=== PATIENT | male | born 1965 | race Caucasian/White ===

== ENCOUNTER 2016-12-14 11:31 | Inpatient (IN) | payer OTHER ==
--- NOTE | 2016-12-14 12:02 | EDPHY ---
HPI/HX/ROS/PE/MDM Narrative: CHIEF COMPLAINT: Cough, low SpO2 HPI: The patient is a 51 y/o male complaining of a persistent nonproductive cough and fever for the last couple weeks. He has felt progressively weaker since cough onset. He saw his PCP, Dr. Zaragoza, about a week ago, and was prescribed cough syrup and a z-pack. He did not have a chest x-ray performed at that time. He feels exhausted walking across a room and has been unable to go to work for the last few days. Today he started to feel confused, prompting him to seek care at the ED. He has associated decrease in his appetite with these symptoms. He denies vomiting, abdominal pain, diarrhea, chest pain, lightheadedness, syncope, recent trauma. He did not receive a flu vaccination this season. REVIEW OF SYSTEMS: Aside from elements discussed in the HPI, a comprehensive 10-point review of systems was reviewed and is negative. 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 PCP: Dr. Zaragoza PHYSICAL EXAM: General:Patient is alert, in no acute distress. SpO2 74% in triage. Febrile 39.5C ENT:Eyes are normal to inspection. ENT inspection normal. Neck: Normal inspection. Full range of motion. Respiratory:No respiratory distress. Breath sounds clear but diminished bilaterally. Cardiovascular: Regular rate and rhythm. Strong peripheral pulses. Normal cap refill. Abdomen:The abdomen is nontender to palpation. There are no peritoneal signs. Back: Normal to inspection. No tenderness to palpation. Skin: Normal color. No rash. Warm and dry. Extremities: Normal appearance. Full range of motion. Neuro: Oriented x3. Normal motor function. Normal sensory function. ED Course: IV established. CBC, CHEM, BNP, troponin, lactic acid drawn. Chest x-ray ordered. 1000mg PO Tylenol administered. 1245: Reassessed patient and discussed work up. Chest x-ray shows bilateral pneumonia. 750mg IV Levaquin administered. He is 91% on 4LPM O2. Patient will require admission, which he agrees to. MDM: This patient presents with hypoxia, fever and cough. His workup reveals PNA. I see no signs of septic shock, PE, ACS, TAD or CHF. - Data Points Imaging Results: Imaging Impressions Chest X-Ray 12/14/16 11:52 Impression: 1. Bilateral opacities, left greater than right, presumably reflect pneumonia. 2. Suspect low-grade congestive failure/fluid overload. Imaging: I viewed and interpreted images myself Laboratory Results: Laboratory Results 12/14/16 12:00 12/14/16 12/14/16 12/14/16 12:00 12:00 12:00 WBC Pending RBC Pending Hgb Pending Hct Pending MCV Pending MCH Pending MCHC Pending RDW Pending Plt Count Pending MPV Pending Neut % (Auto) Pending Lymph % (Auto) Pending [place] % (Auto) Pending Eos % (Auto) Pending Baso % (Auto) Pending Nucleat RBC Rel Count Pending Absolute Neuts (auto) Pending Absolute Lymphs (auto) Pending Absolute Monos (auto) Pending Absolute Eos (auto) Pending Absolute Basos (auto) Pending Absolute Nucleated RBC Pending Immature Gran % Pending Immature Gran # Pending VBG Lactic Acid 1.9 mmol/L mmol/L (0.7-2.1) Sodium 131 mEq/L L mEq/L (134-144) Potassium 3.4 mEq/L L mEq/L (3.5-5.2) Chloride 99 mEq/L mEq/L (97-110) Carbon Dioxide 21 mEq/l L mEq/l (22-31) Anion Gap 11 mEq/L mEq/L (8-16) BUN 20 mg/dL mg/dL (7-23) Creatinine 0.9 mg/dL mg/dL (0.7-1.3) Estimated GFR > 60 Glucose 176 mg/dL H mg/dL (70-100) Calcium 7.6 mg/dL L mg/dL (8.5-10.4) Medications Given: Discontinued Medications Acetaminophen (Tylenol) 1,000 mg PO EDNOW ONE Stop: 12/14/16 12:11 Last Admin: 12/14/16 12:23 Dose: 1,000 mg General Time Seen by Provider: 12/14/16 11:49 Initial Vital Signs: Initial Vital Signs Temperature (C) 39.5 C H 12/14/16 11:40 Heart Rate 103 H 12/14/16 11:40 Respiratory Rate 22 H 12/14/16 11:40 Blood Pressure 140/69 H 12/14/16 11:40 O2 Sat (%) 74 L 12/14/16 11:40 O2 Delivery Mode Room Air O2 (L/minute) 4 Allergies/Adverse Reactions: cephalexin [From Keflex] Allergy (Verified 12/14/16 12:55) Rash Home Medications: Medication Instructions Recorded NK [No Known Home Meds] 12/14/16 Departure - Departure Disposition: [facility] Inpatient Acute Clinical Impression: Cough, Hypoxemia Pneumonia Qualifiers: Pneumonia type: due to unspecified organism Laterality: bilateral Lung location : unspecified part of lung Qualified Code(s): J18.9 - Pneumonia, unspecified organism Fever Qualifiers: Fever type: due to other condition Qualified Code(s): R50.81 - Fever presenting with conditions classified elsewhere Condition: Fair Report Scribed for: Adolfo Singh Report Scribed by: Carito Bess Date of Report: 12/14/16 Time of Report: 12:02 Physician Review and Approval Statement: Portions of this note were transcribed by an ED scribe. I personally performed the history, physical exam, and medical decision making; and confirm the accuracy of the information in the transcribed note.
[2016-12-14] MEDS ORDERED: ACETAMINOPHEN 500 MG TAB PO ONE (12:10)
[2016-12-14 12:20] LABS: % IMMATURE GRANULYOCYTES 0.5 % (0.0-1.1); ABSOLUTE IMMATURE GRANULOCYTES 0.02 10^3/uL (0.00-0.10); ADD DIFF? NO; ADD MORPH? NO; ADD SCAN? YES; FRAGMENT RBC FLAG 0 (0-99); HEMATOCRIT 46.2 % (40.0-51.0); HEMOGLOBIN 16.5 g/dL (13.7-17.5); LEFT SHIFT FLG 0 (0-99); LIPEMIA HEMOLYSIS FLAG 90 (0-99); MEAN CELL HEMOGLOBIN 30.1 pg (27.9-34.1); MEAN CELL HEMOGLOBIN CONCENTR. 35.7 g/dL (32.4-36.7); MEAN CELL VOLUME 84.3 fL (81.5-99.8); MEAN PLATELET VOLUME 10.1 fL (8.7-11.7); PLATELET CLUMPS FLAG 0 (0-99); PLATELET COUNT 157 10^3/uL (150-400); RED BLOOD CELL COUNT 5.48 10^6/uL (4.40-6.38); RED CELL DISTRIBUTION WIDTH 12.9 % (11.5-15.2)
[2016-12-14 12:21] LABS: ATYPICAL LYMPHOCYTE FLAG 260 (0-99)
[2016-12-14 12:35] LABS: ANION GAP 11 mEq/L (8-16); CALCIUM 7.6 mg/dL (8.5-10.4); CARBON DIOXIDE 21 mEq/l (22-31); CHLORIDE 99 mEq/L (97-110); CREATININE 0.9 mg/dL (0.7-1.3); GLOMERULAR FILTRATION RATE > 60; GLUCOSE 176 mg/dL (70-100); POTASSIUM 3.4 mEq/L (3.5-5.2); SODIUM 131 mEq/L (134-144)
[2016-12-14 12:56] LABS: SCAN NEGATIVE
[2016-12-14 13:29] LABS: TROPONIN I 0.03 ng/mL (0-0.034)
[2016-12-14] MEDS ORDERED: ACETAMINOPHEN 325 MG TAB PO PRN (14:44)
[2016-12-14] MEDS ORDERED: ONDANSETRON DISINTEGRATING 4 MG TAB PO PRN (14:44)
[2016-12-14] MEDS ORDERED: oxyCODONE IR 5 MG TAB PO PRN (14:44)
[2016-12-14] MEDS ORDERED: ONDANSETRON 4 MG/2 ML VIAL IVP PRN (14:44)
[2016-12-14] MEDS ORDERED: IBUPROFEN 200 MG TAB PO PRN (14:44)
--- NOTE | 2016-12-14 16:38 | PDGENHP ---
History and Physical - Chief Complaint Acute fatigue - History of Present Illness Primary care provider Dr. Zaragoza HPI: 51-year-old male presents with acute fatigue characterized as general weakness with associated nonproductive cough, confusion, anorexia with onset of symptoms approximately 1 week ago and acute worsening 3 days ago. Duration has been constant and weakness has been exacerbated by ambulation, resulting in the patient barely being able to complete any activities of daily living. He reports significant shortness of breath with things such as tying his shoes. He saw his primary care provider and received Z-Leonardo as well as cough syrup but neither of these interventions alleviated his symptoms. The patient reports that prior to his onset of symptoms he had otherwise been feeling well but he does report that there is a significant environmental exposure component where he works given recent renovations. Many of his coworkers have been ill but this is the 1st time the patient has felt ill himself. History Information - Allergies/Home Medication List Allergies/Adverse Reactions: cephalexin [From Keflex] Allergy (Verified 12/14/16 12:55) Rash Home Medications: NK [No Known Home Meds] 12/14/16 [Last Taken Unknown] I have personally reviewed and updated: family history, medical history, social history, surgical history - Past Medical History Additional medical history: Occasional sinusitis - Surgical History Additional surgical history: Tonsillectomy as a child - Family History Additional family history: No pulmonary conditions, no cardiac condition - Social History Smoking Status: Never smoked Alcohol Use: Occasionally (Never experienced alcohol withdrawal) Drug Use: Marijuana (Occasional) Additional social history: 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 Review of Systems ROS: 10pt was reviewed & negative except for what was stated in HPI & below Constitutional: Reports: weakness Respiratory: Reports: cough, shortness of breath Physical Exam Temp Pulse Resp BP Pulse Ox 37.1 C 77 18 109/75 92 12/14/16 13:47 12/14/16 13:47 12/14/16 13:47 12/14/16 13:47 12/14/16 13:47 O2 (L/minute) 3.5 Constitutional: no apparent distress, appears nourished, not in pain Eyes: PERRL, anicteric sclera, EOMI Ears, Nose, Mouth, Throat: moist mucous membranes, hearing normal, ears appear normal, no oral mucosal ulcers Cardiovascular: regular rate and rhythym, no murmur, rub, or gallop, No edema Respiratory: reduced air movement (On inspiration), rhonchi (Bilaterally to the mid posterior segment), other (Patient is visibly tachypneic), No expiratory wheeze, No bronchial breath sounds Gastrointestinal: normoactive bowel sounds, soft, non-tender abdomen, no palpable masses Skin: warm, normal color, no rashes or abrasions, no fluctuance, no induration, No mottled Neurologic: AAOx3, sensation intact bilaterally, No weakness (Motor strength 5/ 5 bilaterally) Psychiatric: interacting appropriately, not anxious, not encephalopathic, thought process linear Lymph, Heme, Immunologic: other (Palpable nontender 1 cm submandibular and anterior cervical lymph nodes without any posterior cervical lymphadenopathy) Lab Data & Imaging Review 12/14/16 12:00 12/14/16 12:00 WBC 4.17 10^3/uL (3.80-9.50) 12/14/16 12:00 RBC 5.48 10^6/uL (4.40-6.38) 12/14/16 12:00 Hgb 16.5 g/dL (13.7-17.5) 12/14/16 12:00 Hct 46.2 % (40.0-51.0) 12/14/16 12:00 MCV 84.3 fL (81.5-99.8) 12/14/16 12:00 MCH 30.1 pg (27.9-34.1) 12/14/16 12:00 MCHC 35.7 g/dL (32.4-36.7) 12/14/16 12:00 RDW 12.9 % (11.5-15.2) 12/14/16 12:00 Plt Count 157 10^3/uL (150-400) 12/14/16 12:00 MPV 10.1 fL (8.7-11.7) 12/14/16 12:00 Neut % (Auto) 82.2 % (39.3-74.2) H 12/14/16 12:00 Lymph % (Auto) 13.7 % (15.0-45.0) L 12/14/16 12:00 [place] % (Auto) 3.6 % (4.5-13.0) L 12/14/16 12:00 Eos % (Auto) 0.0 % (0.6-7.6) L 12/14/16 12:00 Baso % (Auto) 0.0 % (0.3-1.7) L 12/14/16 12:00 Nucleat RBC Rel Count 0.0 % (0.0-0.2) 12/14/16 12:00 Absolute Neuts (auto) 3.43 10^3/uL (1.70-6.50) 12/14/16 12:00 Absolute Lymphs (auto) 0.57 10^3/uL (1.00-3.00) L 12/14/16 12:00 Absolute Monos (auto) 0.15 10^3/uL (0.30-0.80) L 12/14/16 12:00 Absolute Eos (auto) 0.00 10^3/uL (0.03-0.40) L 12/14/16 12:00 Absolute Basos (auto) 0.00 10^3/uL (0.02-0.10) L 12/14/16 12:00 Absolute Nucleated RBC 0.00 10^3/uL (0-0.01) 12/14/16 12:00 Immature Gran % 0.5 % (0.0-1.1) 12/14/16 12:00 Immature Gran # 0.02 10^3/uL (0.00-0.10) 12/14/16 12:00 VBG Lactic Acid 1.9 mmol/L (0.7-2.1) 12/14/16 12:00 Sodium 131 mEq/L (134-144) L 12/14/16 12:00 Potassium 3.4 mEq/L (3.5-5.2) L 12/14/16 12:00 Chloride 99 mEq/L (97-110) 12/14/16 12:00 Carbon Dioxide 21 mEq/l (22-31) L 12/14/16 12:00 Anion Gap 11 mEq/L (8-16) 12/14/16 12:00 BUN 20 mg/dL (7-23) 12/14/16 12:00 Creatinine 0.9 mg/dL (0.7-1.3) 12/14/16 12:00 Estimated GFR > 60 12/14/16 12:00 Glucose 176 mg/dL (70-100) H 12/14/16 12:00 Calcium 7.6 mg/dL (8.5-10.4) L 12/14/16 12:00 Troponin I 0.030 ng/mL (0-0.034) 12/14/16 10:00 NT-Pro-B Natriuret Pep 83 pg/mL (0-125) 12/14/16 10:00 Visualized and Interpreted Chest x-ray results: Yes Chest X-Ray results: other (Bilateral dense pulmonary infiltrates) Assessment & Plan Assessment: 51-year-old male presenting with sepsis in the setting of community-acquired pneumonia complicated by acute hypoxic respiratory failure Plan: 1. Sepsis. Acute, new problem this provider, further workup indicated. Evidenced by fever, tachycardia, tachypnea, clear source of infection, resulting in autonomic dysregulation in the setting of infection, fulfilling all sepsis-2/icds-2 criteria for sepsis. -continue to monitor CBC closely -continue monitor fever curve -continue IV fluids -continue empiric IV antibiotics -send blood cultures, sputum cultures -if he is systemically worsening, would recommend getting CT with IV contrast to rule out parapneumonic effusion requiring drainage 2. Community-acquired pneumonia. Acute, new problem this provider, further workup indicated. Evidenced by diffuse bilateral pulmonary infiltrates with pneumonia severity index score of 63, conferring class 2 risk of morbidity and/ or mortality but with significant infiltrates and hypoxia placing this patient at what I would consider a much higher risk of clinical worsening -given that he has had no response azithromycin as an outpatient, would recommend single agent for quinolone to cover possible streptococcal and atypical organisms -send urine Legionella, send urine strep, send blood cultures, send sputum cultures, send HIV, verbal consent obtained from patient 3. Hypoxic respiratory failure. Acute, evidenced by SpO2 of 74% on room air with visible tachypnea and poor air movement as well as respiratory distress and symptomatic shortness of breath leading to this presentation, secondary to pneumonia -continue supplemental oxygen and escalated to non-rebreather if patient's tachypnea does not improve -placed on central pulse ox monitoring -does not require intubation at this time 4. Hyponatremia. Acute, most likely secondary to hypovolemia in the setting of above, give IV normal saline and monitor Diet. Regular Prophylaxis. Moderate risk patient given mobility, Lovenox 40 Code. Full Disposition. Anticipated discharge is uncertain this time anticipated length stay is greater than 48 hours warranting inpatient admission status for acute sepsis with high risk comorbid community-acquired pneumonia and acute hypoxic respiratory failure.
[2016-12-14] MEDS: guaiFENesin 600 MG TAB.ER PO SCH ×2 (17:27→19:41)
[2016-12-14] MEDS: guaiFENesin/CODEINE PHOS 10 ML UDCUP PO PRN (19:41)
[2016-12-14] MEDS: NS W/ 20 KCl/L 1,000 ML IV SCH (23:09)
[2016-12-15 04:50] LABS: ALANINE AMINOTRANSFERASE 61 IU/L (21-72); ALBUMIN 2.5 g/dL (3.5-5.0); ALKALINE PHOSPHATASE 53 IU/L (38-126); ANION GAP 5 mEq/L (8-16); ASPARTATE AMINOTRANSFERASE 78 IU/L (17-59); BILIRUBIN,TOTAL 0.6 mg/dL (0.1-1.4); CALCIUM 7.1 mg/dL (8.5-10.4); CARBON DIOXIDE 24 mEq/l (22-31); CHLORIDE 105 mEq/L (97-110); CREATININE 0.8 mg/dL (0.7-1.3); GLOMERULAR FILTRATION RATE > 60; GLUCOSE 97 mg/dL (70-100); POTASSIUM 3.8 mEq/L (3.5-5.2); SODIUM 134 mEq/L (134-144); TOTAL PROTEIN 4.7 g/dL (6.3-8.2)
[2016-12-15] MEDS: NS W/ 20 KCl/L 1,000 ML IV SCH ×3 (04:58→19:36)
[2016-12-15 04:59] LABS: % IMMATURE GRANULYOCYTES 0.5 % (0.0-1.1); ABSOLUTE IMMATURE GRANULOCYTES 0.02 10^3/uL (0.00-0.10); ADD DIFF? NO; ADD MORPH? NO; ADD SCAN? YES; FRAGMENT RBC FLAG 0 (0-99); HEMATOCRIT 41.7 % (40.0-51.0); HEMOGLOBIN 14.6 g/dL (13.7-17.5); LEFT SHIFT FLG 0 (0-99); LIPEMIA HEMOLYSIS FLAG 90 (0-99); MEAN CELL VOLUME 85.6 fL (81.5-99.8); MEAN PLATELET VOLUME 10.2 fL (8.7-11.7); PLATELET CLUMPS FLAG 0 (0-99); PLATELET COUNT 162 10^3/uL (150-400); RED BLOOD CELL COUNT 4.87 10^6/uL (4.40-6.38); RED CELL DISTRIBUTION WIDTH 13.2 % (11.5-15.2)
[2016-12-15 05:00] LABS: ATYPICAL LYMPHOCYTE FLAG 160 (0-99)
[2016-12-15 06:05] LABS: SCAN NEGATIVE
[2016-12-15] MEDS: guaiFENesin/CODEINE PHOS 10 ML UDCUP PO PRN ×2 (08:43→21:08)
[2016-12-15] MEDS: guaiFENesin 600 MG TAB.ER PO SCH ×2 (08:46→19:35)
[2016-12-15] MEDS: ENOXAPARIN 40 MG/0.4 ML SYR SC SCH (08:46)
--- NOTE | 2016-12-15 11:40 | HOSPPROG ---
Hospitalist Progress Note Assessment/Plan: Assessment: 51-year-old male presenting with sepsis in the setting of community-acquired pneumonia complicated by acute hypoxic respiratory failure Plan: 1. Sepsis. POA, evidenced by fever, tachycardia, tachypnea, clear source of infection, resulting in autonomic dysregulation in the setting of infection, fulfilling all sepsis-2/icds-2 criteria for sepsis, left shift on CBC -continue to monitor CBC closely -continue monitor fever curve -continue IV fluids -continue empiric IV antibiotics -if he is systemically worsening, would recommend getting CT with IV contrast to rule out parapneumonic effusion requiring drainage 2. Community-acquired pneumonia. POA, given that he has had no response azithromycin as an outpatient, would recommend single agent fluoroquinolone to cover possible streptococcal and atypical organisms -neg HIV -D#2/ levofloxacin -given ongoing tachypnea, start steroids today in an attempt to reduce duration of symptoms -start duonebs to help expectorate 3. Hypoxic respiratory failure. Acute, evidenced by SpO2 of 74% on room air with visible tachypnea and poor air movement as well as respiratory distress and symptomatic shortness of breath leading to this presentation, secondary to pneumonia, dense infiltrates on CXR (personally interpreted) -continues to require 3.5L NC and is visibly tachypneic, gets very SOB and hypoxic w/ any exertion -BNP nl on admission, very unlikely to be CHF, hold on echo 4. Hyponatremia. Acute, most likely secondary to hypovolemia in the setting of above, stop NS Diet. Regular Prophylaxis. Moderate risk patient given mobility, Lovenox 40 Code. Full Disposition. Anticipated discharge is uncertain, ongoing resp failure and unsafe to discharge home as his situation is high risk for clinical worsening, highly complex medical decision making 2/2 issues above. Subjective: Patient reports significant shortness of breath with minimal activity, SpO2 was 64% when he got up to use the restroom Objective: Vital Signs Temp Pulse Resp BP Pulse Ox 37.6 C 81 20 122/85 H 91 L 12/15/16 07:27 12/15/16 07:27 12/15/16 07:27 12/15/16 07:27 12/15/16 07:27 Microbiology 12/14/16 22:00 - Final Sputum, Expectorated Laboratory Results 12/15/16 04:13 12/15/16 04:13 12/14/16 12/15/16 12/16/16 05:59 05:59 05:59 Intake Total 2610 Output Total 400 Balance 2210 - Physical Exam Constitutional: appears nourished, not in pain, No no apparent distress (Mild respiratory distress), No chronically ill appearing, No uncomfortable Cardiovascular: regular rate and rhythym, no murmur, rub, or gallop, No edema Respiratory: rhonchi (Bilaterally from inferior to mid posterior segment), other (Visible tachypnea), No expiratory wheeze, No bronchial breath sounds Gastrointestinal: normoactive bowel sounds, soft, non-tender abdomen, no palpable masses Neurologic: AAOx3, sensation intact bilaterally Psychiatric: not encephalopathic, thought process linear, anxious, No agitated ICD10 Worksheet Patient Problems: Problems Problem Status Onset Pneumonia Acute Cough Acute Fever Acute Hypoxemia Acute
[2016-12-15] MEDS: IPRATROPIUM/ALBUTEROL 3 ML DEYVIAL IH SCH ×3 (12:04→21:23)
[2016-12-15] MEDS: predniSONE 20 MG TAB PO SCH (12:34)
[2016-12-16] MEDS: IPRATROPIUM/ALBUTEROL 3 ML DEYVIAL IH SCH ×5 (01:08→22:58)
[2016-12-16 05:34] LABS: % IMMATURE GRANULYOCYTES 0.6 % (0.0-1.1); ABSOLUTE IMMATURE GRANULOCYTES 0.03 10^3/uL (0.00-0.10); ADD DIFF? NO; ADD MORPH? NO; ADD SCAN? YES; FRAGMENT RBC FLAG 0 (0-99); HEMATOCRIT 42.6 % (40.0-51.0); HEMOGLOBIN 14.4 g/dL (13.7-17.5); LEFT SHIFT FLG 0 (0-99); LIPEMIA HEMOLYSIS FLAG 90 (0-99); MEAN CELL HEMOGLOBIN 29.8 pg (27.9-34.1); MEAN CELL HEMOGLOBIN CONCENTR. 33.8 g/dL (32.4-36.7); MEAN PLATELET VOLUME 10.1 fL (8.7-11.7); PLATELET CLUMPS FLAG 0 (0-99); PLATELET COUNT 193 10^3/uL (150-400); RED BLOOD CELL COUNT 4.84 10^6/uL (4.40-6.38); RED CELL DISTRIBUTION WIDTH 13.4 % (11.5-15.2)
[2016-12-16 05:46] LABS: ATYPICAL LYMPHOCYTE FLAG 130 (0-99)
[2016-12-16 06:19] LABS: SCAN NEGATIVE
[2016-12-16] MEDS: predniSONE 20 MG TAB PO SCH (08:35)
[2016-12-16] MEDS: guaiFENesin 600 MG TAB.ER PO SCH ×2 (08:35→21:12)
[2016-12-16] MEDS: ENOXAPARIN 40 MG/0.4 ML SYR SC SCH (08:37)
[2016-12-16] MEDS ORDERED: IOPAMIDOL (ISOVUE-300) 100 ML BTL ONE (10:45)
--- NOTE | 2016-12-16 14:43 | GCON ---
[f rep st] CONSULTATION CHEST CONSULTATION REASON FOR CONSULTATION: Diffuse pneumonia. HISTORY OF PRESENT ILLNESS: The patient is a very pleasant 51-year-old white male without past medi onelia history. He presents with increasing cough and breathlessness. In discussion, the patient stat es it began 9 days prior, which began as a cough that was distinctly nonproductive. There is no hem optysis. He began developing a bit of a low-grade fever. He sought medical attention and was begun on azithromycin per his primary care doctor. This was a short 4-day course. He has continued liat thlessness and sought medical attention. He was simply admitted to the hospital. Currently states he feels markedly improved. He showered today and had no problem with breathlessness nor dizziness. His cough is improved as well. There is no chest pain, pleuritic-type chest pain, or angina equiv alent. No fever or night sweats currently. There has been no weight loss. Prior to this, he was i n his normal state of health. PAST MEDICAL HISTORY: None. PAST SURGICAL HISTORY: Tonsillectomy. ALLERGIES: Keflex. SOCIAL HISTORY: No history of tobacco use. Infrequent alcohol use. Infrequent marijuana use. 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 PHYSICAL EXAM: VITAL SIGNS: Blood pressure is 140/94, pulse 98, respirations are 18, temperature 3 6.8, oxygen saturation is 94% on 5 L. GENERAL: He is a well-developed, well-nourished 51-year-old white male who is resting comfortably on nasal cannula oxygen. HEENT: Eyes are STEPHEN, EOMI. Throat shows no erythema or tonsillar hypertrophy. NECK: Supple. No cervical adenopathy. HEART: Regul ar rate and rhythm without murmurs, rubs, or gallops. LUNGS: Diffuse crackles, increased in the ba ses. ABDOMEN: Soft, nontender. Bowel sounds are present in all 4 quadrants. There is no clubbing , cyanosis, or edema. LABORATORIES: White count 4.9, hemoglobin 14, hematocrit 42, platelet count is 193. Sodium 134, po tassium 3.8, chloride 105, CO2 24, BUN 14, creatinine 0.8, glucose is 97. HIV is negative. Influen za A and B are negative. Urine legionella antigen and urine Strep pneumoniae antigen are currently pending. IMPRESSION: 1. Diffuse pneumonitis. Etiology of which is unclear. Though diffuse pneumonia would appear to be most likely, unclear whether this is bacterial versus viral. While interstitial lung disease is a possibility, given the acuity of this, this would be unlikely. I feel that the current renovations going on in his hotel are not pertinent to hypoxemic respiratory failure secondary to pneumonia. He continues on supplemental oxygen, though this has improved. 2. Hyponatremia. 3. Sepsis, resolved. RECOMMENDATIONS: 1. Agree with current antibiotic coverage. Would keep him on Levaquin for 14 days. 2. Agree with current course of steroids. Again, would taper this over 14 days. 3. Should receive a followup chest x-ray in approximately 1 month. 4. Wean FiO2 as tolerated. 5. Discussed diagnostic options with the patient. 6. have agreed on continued antibiotics and steroids at this time, though bronchoscopy in his futur e if this does not improve would be a possibility. Thank you very much for allowing me to participate in the care of this interesting patient. Will veena steel along with you. /[id number]/MODL
--- NOTE | 2016-12-16 14:47 | HOSPPROG ---
Hospitalist Progress Note Assessment/Plan: Assessment: 51-year-old male presenting with sepsis in the setting of community-acquired pneumonia complicated by acute hypoxic respiratory failure Plan: 1. Sepsis. POA, resolved -holding further IVF given worsening resp status, cont IV Abx 2. Community-acquired pneumonia. POA, cover possible streptococcal and atypical organisms -D#3/7 levofloxacin -d/w Dr. Renny Wilburn, reported that patient has shultz-lobar extensive PNA on CT -pneumonitis from environmental exposure (turn of the plaster at the [facility] [employer]) is also a possibility -d/w Dr. Mena, recommends ongoing Abx for 14 days w/ steroid taper over 14 days, then bronch in 2 weeks if not improving 3. Hypoxic respiratory failure. Acute, secondary to pneumonia, unlikely CHF given normal BNP -increasing requirements to 5L NC 4. Hyponatremia. Acute, most likely secondary to hypovolemia in the setting of above, stop NS Diet. Regular Prophylaxis. Moderate risk patient given mobility, Lovenox 40 Code. Full Disposition. Anticipated discharge is uncertain, ongoing resp failure and unsafe to discharge home as his situation is high risk for clinical worsening, highly complex medical decision making 2/2 issues above. Subjective: counseled the patient regarding plan for CT scan today, elevated oxygen requirement of 5 L, stopping IV fluids Objective: Vital Signs Temp Pulse Resp BP Pulse Ox 36.8 C 98 18 141/94 H 94 12/16/16 13:29 12/16/16 13:29 12/16/16 13:29 12/16/16 13:29 12/16/16 13:29 Microbiology 12/14/16 22:00 - Final Sputum, Expectorated Laboratory Results 12/16/16 04:53 12/15/16 04:13 12/15/16 12/16/16 12/17/16 05:59 05:59 05:59 Intake Total 2610 4350 Output Total 400 1650 250 Balance 2210 2700 -250 - Time Spent With Patient Time Spent with Patient: greater than 35 minutes Time Spent with Patient: Greater than 35 minutes spent on this patients care, greater than 50% of time spent counseling, educating, and coordinating care regarding the above mentioned plan. - Physical Exam Constitutional: not in pain, uncomfortable ( remains tachypn) Cardiovascular: regular rate and rhythym (eic), no murmur, rub, or gallop, No edema Respiratory: respiratory distress ( visible tachypnea), rhonchi ( diffusely throughout), No expiratory wheeze, No bronchial breath sounds Gastrointestinal: normoactive bowel sounds, soft, non-tender abdomen, no palpable masses Neurologic: AAOx3 Psychiatric: interacting appropriately, not anxious, not encephalopathic, thought process linear ICD10 Worksheet Patient Problems: Problems Problem Status Onset Pneumonia Acute Cough Acute Fever Acute Hypoxemia Acute
[2016-12-17 04:38] LABS: ABSOLUTE IMMATURE GRANULOCYTES 0.06 10^3/uL (0.00-0.10); ADD DIFF? NO; ADD MORPH? NO; ADD SCAN? YES; FRAGMENT RBC FLAG 0 (0-99); HEMATOCRIT 40.9 % (40.0-51.0); HEMOGLOBIN 13.9 g/dL (13.7-17.5); LEFT SHIFT FLG 0 (0-99); LIPEMIA HEMOLYSIS FLAG 90 (0-99); MEAN CELL HEMOGLOBIN 29.9 pg (27.9-34.1); MEAN PLATELET VOLUME 10.2 fL (8.7-11.7); PLATELET CLUMPS FLAG 0 (0-99); PLATELET COUNT 202 10^3/uL (150-400); RED BLOOD CELL COUNT 4.65 10^6/uL (4.40-6.38); RED CELL DISTRIBUTION WIDTH 13.7 % (11.5-15.2)
[2016-12-17 04:39] LABS: ATYPICAL LYMPHOCYTE FLAG 170 (0-99)
[2016-12-17] MEDS ORDERED: LORazepam 1 MG TAB PO ONE (05:23)
[2016-12-17 05:24] LABS: SCAN NEGATIVE
[2016-12-17] MEDS: IPRATROPIUM/ALBUTEROL 3 ML DEYVIAL IH SCH ×4 (06:00→22:01)
[2016-12-17] MEDS ORDERED: LORazepam 0.5 MG TAB PO ONE (06:30)
[2016-12-17] MEDS ORDERED: LORazepam 0.5 MG TAB ONE (08:35)
[2016-12-17] MEDS: predniSONE 20 MG TAB PO SCH (09:00)
[2016-12-17] MEDS: ENOXAPARIN 40 MG/0.4 ML SYR SC SCH (09:00)
[2016-12-17] MEDS: guaiFENesin 600 MG TAB.ER PO SCH ×2 (09:00→21:02)
--- NOTE | 2016-12-17 13:52 | HOSPPROG ---
Hospitalist Progress Note Assessment/Plan: 51-year-old male new to my care 12/17/16 presenting with sepsis in the setting of community-acquired pneumonia complicated by acute hypoxic respiratory failure #acute hypoxemic respiratory failure in the setting of community acquired pneumonia with diffuse alveolar opacities on chest ct -cont Levaquin D#/ -cont prednisone -pulm consult note was reviewed and appreciated #. Sepsis. POA, resolved -cont IV Abx # Hyponatremia (resolved) Diet. Regular Prophylaxis. Moderate risk patient given mobility, Lovenox 40 Code. Full Disposition. Anticipated discharge is uncertain, ongoing resp failure and unsafe to discharge home as his situation is high risk for clinical worsening, highly complex medical decision making 2/2 issues above. Subjective: still with significant shortness of breath. hasn't been getting up. reports productive cough. overall feeling better than yesterday Objective: Vital Signs Temp Pulse Resp BP Pulse Ox 36.8 C 101 H 18 141/93 H 93 12/17/16 12:42 12/17/16 12:42 12/17/16 12:42 12/17/16 12:42 12/17/16 12:42 Microbiology 12/14/16 22:00 - Final Sputum, Expectorated Sputum Culture - Final Laboratory Results 12/17/16 04:06 12/15/16 04:13 12/16/16 12/17/16 12/18/16 05:59 05:59 05:59 Intake Total 4350 2650 Output Total 1650 750 Balance [address] reviewed - Physical Exam Constitutional: no apparent distress, appears nourished, not in pain Cardiovascular: no murmur, rub, or gallop, tachycardia, No JVD, No edema Respiratory: no respiratory distress, reduced air movement, inspiratory crackles , No rhonchi Gastrointestinal: normoactive bowel sounds, soft, non-tender abdomen, no palpable masses, No guarding, No rebound Neurologic: AAOx3, sensation intact bilaterally ICD10 Worksheet Patient Problems: Problems Problem Status Onset Pneumonia Acute Cough Acute Fever Acute Hypoxemia Acute
--- NOTE | 2016-12-17 17:40 | SOAPPROG ---
SOAP Progress Note Assessment/Plan: Assessment: Community-acquired pneumonia/pneumonitis. Improving, on Levaquin. Also on steroids. HSP not totally excluded but no exposure history in favor of this. On empiric steroids so treated anyway. Inflammatory diffuse lung disease seems unlikely based on his presentation but also cannot be excluded at this time. It is reasonable to continue to treat the patient as we are doing, perhaps discharging him tomorrow to complete a course of antibiotics and steroids at home then follow-up with Pulmonary in the office. If changes persistent further evaluation, including possible bronchoscopy and biopsies would be needed. Plan: Continue present care with oxygen, bronchopulmonary therapies, and steroids. I will repeat x-ray tomorrow and get spirometry pre and post bronchodilator. Will check inflammatory markers as well. Possibly can discharge tomorrow if he seems to be doing well. Subjective: Feels better, less short of breath. Able to cough up some mucus, mostly clear. A small amount of blood tinged mucus on 1 occasion? Objective: Vital Signs Temp Pulse Resp BP Pulse Ox 37.2 C 93 18 161/108 H 93 12/17/16 16:59 12/17/16 16:59 12/17/16 16:59 12/17/16 16:59 12/17/16 16:59 Microbiology 12/14/16 22:00 - Final Sputum, Expectorated Sputum Culture - Final Laboratory Results 12/17/16 04:06 12/15/16 04:13 12/16/16 12/17/16 12/18/16 05:59 05:59 05:59 Intake Total 4350 2650 Output Total 1650 750 Balance 2700 1900 Physical Exam - Physical Exam General Appearance: alert, no apparent distress EENT: other (Nasal cannula in place at 5 L, no change) Neck: normal inspection (No JVD) Respiratory: decreased breath sounds (And excursions), rales (Bilateral rales, both bases and anteriorly) Cardiac/Chest: regular rate, rhythm (To sinus tach), other (Somewhat distant heart tones secondary to body habitus.), No gallop Abdomen: normal bowel sounds, non-tender, soft (Overweight) Skin: normal color, warm/dry Extremities: No pedal edema Neuro/Psych: no motor/sensory deficits, No cognition abnormalities ICD10 Worksheet Patient Problems: Problems Problem Status Onset Pneumonia Acute Cough Acute Fever Acute Hypoxemia Acute
[2016-12-18 04:38] LABS: HEMATOCRIT 40.5 % (40.0-51.0)
[2016-12-18] MEDS: IPRATROPIUM/ALBUTEROL 3 ML DEYVIAL IH SCH ×3 (05:49→11:31)
--- NOTE | 2016-12-18 08:31 | HOSPPROG ---
Hospitalist Progress Note Assessment/Plan: Patient new to my care. I have reviewed imaging, labs, progress notes #CAP and pneumonitis -DAy 5/ Levaquin, pred -appreciate Pulmonary's consultation -AKIN, anti-CCP, AVELINO pending #Acute hypoxic resp failure: due to above. Still on 5L #Sepsis: resolved #Hypovolemic hyponatremia: resolved #Diet: regular #DVT ppx: Lovenox #Disp: cont Abx, pred Subjective: still coughing, but breathing improved Objective: Vital Signs Temp Pulse Resp BP Pulse Ox 37.1 C 92 16 160/101 H 91 L 12/18/16 04:34 12/18/16 05:50 12/18/16 05:50 12/18/16 04:34 12/18/16 05:50 Laboratory Results 12/18/16 04:10 12/15/16 04:13 12/17/16 12/18/16 12/19/16 05:59 05:59 05:59 Intake Total 2650 1485 Output Total 750 2200 Balance 1900 -715 - Physical Exam Constitutional: no apparent distress Eyes: PERRL Ears, Nose, Mouth, Throat: moist mucous membranes, hearing normal Cardiovascular: regular rate and rhythym, no murmur, rub, or gallop, edema (no LE swelling) Respiratory: rhonchi Gastrointestinal: normoactive bowel sounds, soft, non-tender abdomen Genitourinary: no bladder fullness Skin: warm Musculoskeletal: full muscle strength Neurologic: AAOx3 Psychiatric: interacting appropriately, not anxious ICD10 Worksheet Patient Problems: Problems Problem Status Onset Cough Acute Fever Acute Hypoxemia Acute Pneumonia Acute
[2016-12-18 09:23] VITALS: TEMP 98.3
[2016-12-18] MEDS: guaiFENesin 600 MG TAB.ER PO SCH (09:33)
[2016-12-18] MEDS: predniSONE 20 MG TAB PO SCH (09:33)
[2016-12-18] MEDS: BENZONATATE 100 MG CAP PO PRN ×2 (09:34→15:17)
[2016-12-18] MEDS: ENOXAPARIN 40 MG/0.4 ML SYR SC SCH (09:34)
[2016-12-18] MEDS ORDERED: predniSONE 20 MG TAB PO ONE (13:10)
--- NOTE | 2016-12-18 14:38 | GDS ---
[f rep st] DISCHARGE SUMMARY DISCHARGE DIAGNOSES: 1. Acute hypoxic respiratory failure. 2. Community-acquired pneumonia plus or minus pneumonitis. 3. Accelerated hypertension. 4. Sepsis. 5. Hypovolemic hyponatremia. HISTORY OF PRESENT ILLNESS: The patient is a 51-year-old male who presented with acute fatigue, weakness, nonproductive cough, confusion, and anorexia a week prior to admission. Says the weakness was exacerbated by ambulation to the point where he could not complete his daily activities. He had such significant shortness of breath even with tying his shoes. He saw his PCP and was dosed a Z-Leonardo but none of these alleviated symptoms. HOSPITAL COURSE: 1. Sepsis: This is secondary to community-acquired pneumonia. Patient was treated with IV antibiotics with resolution. 2. Community-acquired pneumonia: appreciate Pulmonary consultation. X-ray shows improvement of bilateral opacities today. Suspect this is due to an acute illness, however pneumonitis is possibility. 3. Acute hypoxic respiratory failure: Again, secondary to acute infection. Symptoms and x-ray improved. He is now on 2-3 L oxygen. We will continue a total of 7 days of antibiotics and a prednisone taper. Patient to follow up with Dr. Lawrence in the next 1-2 weeks. If persistent, could consider bronchoscopy. Labs pending, AVELINO and anti-CCP. 4. Hypovolemic hyponatremia: Secondary to decreased p.o. intake. This resolved. 5. Accelerated hypertension: Per review of blood pressures, systolic was consistently above 140. Patient denied any chest pain, shortness of breath, or headaches. Recommend that he follow up with his PCP for possible initiation of antihypertensives. DISPOSITION: Patient is stable for discharge. DISCHARGE MEDICATIONS: New medications: Prednisone, Levaquin, and Tessalon Perles. FOLLOWUP: 1. Dr. Lawrence. 2. PCP for blood pressure. Labs pending: Anti-CCP, AVELINO, and AKIN. /[id number]/MODL MTDD
[2016-12-18 15:58] VITALS: BP 155/104; PULSE 99; RESP 18; O2SAT 94
[2016-12-19] MEDS ORDERED: predniSONE 20 MG TAB PO SCH (09:00)
[2016-12-19 12:40] LABS: MYCOPLASMA PNUEMONIAE IGM 0.06 index (<=0.90)
[2016-12-19 14:42] LABS: ANGIOTENSIN CONVERTING ENZYME 29 U/L (8 - 53)
[2016-12-19 16:44] LABS: ANTI CCP AB < 15.6 U
== END 2016-12-18 16:15 | disposition home or self-care (01) | DRG 871 ==
LOC: OBSVTOIN 12:58 → F1N 13:33
PROVIDERS: ADMIT Family Medicine; ATTEND Internal Medicine
DX: A41.9 Sepsis, unspecified organism (principal); J18.8 Other pneumonia, unspecified organism; J96.01 Acute respiratory failure with hypoxia; E87.1 Hypo-osmolality and hyponatremia; I10 Essential (primary) hypertension; E86.1 Hypovolemia
CPT/HCPCS: 82164-90; 86738-90; 87449-90; 96365; 96366; J1650; J1956; Q9967